=== PATIENT | male | born 1975 | race Caucasian/White ===

== ENCOUNTER → 2021-03-19 | Outpatient (CLI) | payer OTHER ==
[2021-03-20 12:14] LABS: RHEUMATOID ARTHRITIS FACTOR <10.0 IU/mL (0.0-13.9)
== END ==
LOC: LAB 12:34
PROVIDERS: Nurse Practitioner Family
DX: M25.50 Pain in unspecified joint (principal); M10.9 Gout, unspecified
CPT/HCPCS: 36415; 83520; 84550; 85652; 86140; 86200; 86431